=== PATIENT | female | born 1985 | race Hispanic/Latino ===

== ENCOUNTER 2019-08-03 14:09 | Day surgery (SDC) | payer SELFPAY ==
[2019-08-03 14:52] VITALS: BMI 38.4
[2019-08-03] MEDS ORDERED: Iron Sucrose Complex 500 MG in Sodium Chloride 0.9% 250 ML 250 ML IVPB SCH (14:59)
[2019-08-03] MEDS ORDERED: Acetaminophen 500 MG TAB PO SCH ×2 (15:00→15:15)
[2019-08-03] MEDS ORDERED: hydrALAZINE 20 MG/ML VIAL SLOW IVP PRN (15:01)
--- NOTE | 2019-08-03 15:01 | PDOC.FPROB ---
FMR OB H&P: HPI - History of Present Illness Chief Complaint: Iron Infusion History of Present Illness: Pt is a 34 yo F with history of possible pre-term at 36 wks at 12.0 wks with LM 02/15/2020 who was seen in clinic earlier this week and found to have a Hgb of 7.1 with MCV 58.8, so she was scheduled to have iron studies preformed. Review Systems is positive for weakness, SOB, tachycardia, fatigue, abdominal pain, and headaches. 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 FMR OB H&P: Medications - Current Home Medications: Medication Instructions Recorded Confirmed Type Vit,Calc76/Iron/Folic 1 tablet PO DAILY 12/01/13 12/01/13 History [Prenatabs Rx Tablet] Ascorbic Acid [Vitamin C] 500 mg PO BID 30 Days #60 capsule 08/03/19 Rx Docusate [Colace] 100 mg PO BID 30 Days #60 cap 08/03/19 Rx Ferrous Sulfate 325 mg PO BID 30 Days #60 tablet 08/03/19 Rx Allergies/Adverse Reactions: Allergies Allergy/AdvReac Type Severity Reaction Status Date / Time No Known Allergies Allergy Verified 08/03/19 14:52 FMR OB H&P: ROS - Review of Systems General: reports: fatigue. denies: fever/chills Eyes: denies: vision changes ENT: denies: nasal congestion, rhinorrhea Cardiovascular: denies: chest pain, edema Respiratory: reports: shortness of breath. denies: cough, congestion Gastrointestinal: reports: abdominal pain. denies: vomiting, diarrhea, constipation Genitourinary (Female): denies: dysuria Musculoskeletal: denies: pain, tenderness Neurologic: reports: weakness, headache. denies: numbness, syncope Integumentary: denies: itching, rash Hematologic/Lymphatic: denies: prolonged or excessive bleeding, enlarged lymph nodes FMR OB H&P: Vital Signs - Maternal Vital signs: HR: 73, BP: 123/68, T: 98.2 FMR OB H&P: Physical Exam - Physical Exam General: NAD, awake, alert and oriented HEENT: normocephalic and atraumatic, conjunctiva clear, normal nasal mucosa, oropharynx clear, good dention Neck: supple, FROM Heart: RRR, normal S1/S2, no murmurs/rubs/gallops, pulses present General: CTAB, no respiratory distress Abdomen: soft, gravid, non-tender, bowel sound present, no masses Musculoskeletal: pulses present, FROM in all four extremities Neurological: cranial nerves II through XII intact Skin: no rash, good tugor Lymphatic: no unusual bruising or bleeding Psychiatric: normal mood and affect FMR OB H&P: A/P - Problem List (1) Intrauterine Current Visit: Yes Status: Acute Code(s): Z34.90 - ENCNTR FOR SUPRVSN OF NORMAL , UNSP, UNSP TRIMESTER (2) Anemia Current Visit: Yes Status: Acute Code(s): D64.9 - ANEMIA, UNSPECIFIED Disposition: Pt is a 34 yo F with history of possible pre-term at 36 wks at 12.0 wks with LM 02/15/2020 who was seen in clinic earlier this week and found to have a Hgb of 7.1 with MCV 58.8, so she was scheduled to have iron studies preformed. 1. sIUP Currently 12.0 wks * US found HR to be 169 * Given 1 g of Tylenol for headache 2. Anemia of Hgb: 7.1 with MCV 58.8 * Ordered iron studies * Starting iron transfusion * Will send with integra and vitamin C as well as ducolax and colace once transfusion finishes * Consider hemoglobin electrophoresis outpatient Dispo: Iron transfusion and then d/c. F/u with [facility]NC. Discussion: Date/Time: 08/03/19 9997 This H&P was discussed with Dr. [] and [] who agree with the above documentation and plan. Addendum - Attending - Attending Attestation Date/Time: 08/03/19 5793 I personally evaluated the patient and discussed the management with Dr. Trinidad I agree with the History, Examination, Assessment and Plan documented above with any addition or exceptions noted below. iron infusion started. Iron studies ordered. MCV 56. Will consider hemoglobin eval outpatient.
[2019-08-03 15:28] LABS: Iron 17 ug/dL (50-170); Iron Binding Capacity, Total 490 mcg/dL (265-497)
--- NOTE | 2019-08-03 20:37 | PDOC.BPN ---
- Brief Progress Note At 2030 on 08/03 the Resident Night Team was notified that the patient finished her iron infusion without incident. Appropriate prescriptions were placed at her preferred pharmacy, and the patient voiced understanding of her updated medication regimen.
--- NOTE | 2019-08-06 14:59 | SS ---
DATE OF ADMISSION: 08/03/2019 DATE OF DISCHARGE: 08/03/2019 CHIEF COMPLAINT: Iron infusion. HISTORY OF PRESENT ILLNESS: The patient is a 34-year-old female. She is a G6, P4-1-0-5 with a history of possible at 36 weeks, who presents at 12 weeks with estimated due date of 02/15/2020, who was seen in clinic earlier this week and found to have a hemoglobin 7.1 with an MCV of 58.8. She was also scheduled to have iron studies performed. REVIEW OF SYSTEMS: Positive for weakness, shortness of breath, tachycardia, fatigue, abdominal pain, and headaches. PAST MEDICAL HISTORY: Significant for anemia of . PAST SURGICAL HISTORY: Unremarkable. FAMILY HISTORY: Positive for diabetes in her father. SOCIAL HISTORY: The patient denies alcohol, tobacco, or drug abuse at this time. ADMISSION MEDICATIONS: 1. vitamin. 2. Vitamin C. 3. Colace. 4. Ferrous sulfate. REVIEW OF SYSTEMS: The patient reports fatigue. Denies fevers and chills. Also denies vision changes, nasal congestion, rhinorrhea, chest pain, or edema. Reports of shortness of breath, but denies cough or congestion. Reports abdominal pain. Denies vomiting, diarrhea, or constipation. Denies dysuria. Denies muscular pain and/or tenderness. Reports weakness and headaches, but denies numbness or syncopal episodes. Denies itching or rash. Denies prolonged or excessive bleeding or enlarged lymph nodes. PHYSICAL EXAMINATION: GENERAL: The patient was in no acute distress and was awake, alert, and oriented. HEENT: Revealed normocephalic and atraumatic head with clear conjunctiva. Normal nasal mucosa. Clear oropharynx and good dentition. NECK: Supple with full range of motion. HEART: Demonstrated regular rate and rhythm with normal S1, S2 and no murmurs, gallops, or rubs. Pulses were present. LUNGS: Clear lungs to auscultation bilaterally, were noted without signs of respiratory distress. ABDOMEN: Soft, gravid, nontender with bowel sounds present and no masses. MUSCULOSKELETAL: Revealed pulses present with full range of motion x4. NEUROLOGIC: Revealed cranial nerves 2 through 12 intact. SKIN: Unremarkable. LYMPHATIC: Unremarkable. PSYCHIATRIC: Demonstrated normal mood and affect. HOSPITAL COURSE: The patient received an iron transfusion in the Labor and Delivery department, was noted by nursing staff to tolerate the procedure well. DISCHARGE DIAGNOSES: 1. Anemia of . 2. Single intrauterine . DISCHARGE MEDICATIONS: 1. Ascorbic acid 500 mg p.o. b.i.d. 2. Docusate 100 mg p.o. b.i.d. 3. Ferrous sulfate 325 mg p.o. b.i.d. DISPOSITION: Stable. DISCHARGE INSTRUCTIONS: Location: Home. Diet: Heart healthy. Activity: No restrictions. Followup: The patient was encouraged to follow up with clinic for ongoing maintenance of her . Job ID: [id number]
== END 2019-08-03 20:35 | disposition home or self-care (01) ==
LOC: L&D/OP 14:09
PROVIDERS: ATTEND Family Medicine
DX: O99.011 Anemia complicating pregnancy, first trimester (principal); D64.9 Anemia, unspecified; Z3A.12 12 weeks gestation of pregnancy; Z79.899 Other long term (current) drug therapy
CPT/HCPCS: 82728; 83540; 83550; 96360; 96365; 96366; 99282; J1756; J7050

== ENCOUNTER 2019-12-27 15:20 | Day surgery (SDC) | payer SELFPAY ==
[2019-12-27 15:49] VITALS: BP 154/82; TEMP 98.2; BMI 37.8
--- NOTE | 2019-12-27 16:39 | PDOC.FPROB ---
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 Denies landing on her belly. Reports no vaginal discharge or bleeding. Notes her pain does not feel like contractions. FMR OB H&P: Current - Care : Due date: 02/15/2020 Dating Criteria: 11 week FMR OB H&P: History - Past Medical History PMH: Anemia of , A1GDM - OB History OB History: , all vaginal deliveries, no complications - Surgical History Sx History: No Surgical Hx - Social History Social History: No tobacco, drugs, alcohol - Family History Family History: non- contributory FMR OB H&P: Medications - Current Home Medications: Medication Instructions Recorded Confirmed Type Vit,Calc76/Iron/Folic 1 tablet PO DAILY 12/01/13 12/27/19 History [Prenatabs Rx Tablet] Allergies/Adverse Reactions: Allergies Allergy/AdvReac Type Severity Reaction Status Date / Time No Known Allergies Allergy Verified 08/03/19 14:52 FMR OB H&P: ROS - Review of Systems General: denies: fever/chills, weight/appetite/sleep changes Eyes: denies: eye pain, vision changes ENT: denies: nasal congestion, rhinorrhea Cardiovascular: denies: chest pain, palpitation Respiratory: denies: cough, congestion Gastrointestinal: reports: abdominal pain (Upper and lower abdominal pain), cramping. denies: nausea, vomiting Genitourinary (Female): denies: vaginal discharge, vaginal bleeding, contractions Musculoskeletal: reports: pain (knee pain) Neurologic: reports: other (+dizziness). denies: numbness, syncope Integumentary: denies: itching, rash Breast: denies: lumps, bumps Endocrine: denies: cold intolerance, heat intolerance Hematologic/Lymphatic: denies: prolonged or excessive bleeding, enlarged lymph nodes Psychological: denies: depression, anxiety FMR OB H&P: Vital Signs - Maternal Vital signs: Vital Signs - First Documented Temp Pulse Resp BP Pulse Ox 98.2 F 74 18 154/82 H 98 12/27/19 15:42 12/27/19 15:42 12/27/19 15:42 12/27/19 15:42 12/27/19 15:42 - Heart Tones Baseline: 135 (130s-140s) Variability: moderate Acceleration: present Deceleration: absent Category: category 1 [place] contractions every: no contractions FMR OB H&P: Physical Exam - Physical Exam General: NAD, awake, alert and oriented HEENT: normocephalic and atraumatic, PERRLA Neck: supple, FROM Chest: non-tender to palpation, no lesions Breast: symmetric, non-tender Heart: RRR, normal S1/S2 General: CTAB, no respiratory distress Abdomen: soft, gravid, other (mild TTP in RUQ, no bruising on the abdomen) Musculoskeletal: normal gait and station, pulses present Neurological: no tremor, no focal deficit Skin: no rash, good tugor Lymphatic: no unusual bruising or bleeding, no purpura Psychiatric: intact recent and remote memory, good judgement and insight, normal mood and affect - Pelvic Exam Vulva: normal hair distribution FMR OB H&P: A/P Disposition: 34 year old female, Hx of Anemia of and A1GDM during this , at 32.6 weeks 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 Notes she had upper and lower abdominal pain 20 minutes s/p fall. Denies landing on her abdomen. Reports no vaginal discharge or bleeding. Notes her pain does not feel like contractions. Fall in - - No bruising/ecchymosis on the abdomen. mild TTP RUQ, describes pain as cramping, notes it is different from labor pain. - Denies vaginal bleeding/discharge - Tylenol 1gm given for pain - will continue to monitor strip and vitals for 2 hours Discussion: Date/Time: 12/27/19 1636 This H&P was discussed with [] and [] who agree with the above documentation and plan. Addendum - Attending - Attending Attestation Date/Time: 12/27/19 874 I personally evaluated the patient and discussed the management with Dr. Farooq. I agree with the History, Examination, Assessment and Plan documented above. S/ p fall with no abdominal trauma. Now asymptomatic but had elevated BPs. Workup pending.
[2019-12-27] MEDS ORDERED: hydrALAZINE 20 MG/ML VIAL SLOW IVP PRN (16:45)
[2019-12-27] MEDS ORDERED: Acetaminophen 500 MG TAB PO SCH (17:15)
[2019-12-27 18:26] LABS: #Eosinphils 0.1 thou/uL (0.0-0.7); #Lymphocytes 1.5 thou/uL (1.20-3.40); #Monocytes 0.6 thou/uL (0.11-0.59); #Neutrophils 4.6 thou/uL (1.40-6.50); %Basophils 0.6 % (0.0-1.0); %Eosinophils 1.3 % (0.0-10.0); %Lymphocytes 21.9 % (21.0-51.0); %Monocytes 8.2 % (0.0-10.0); Hemoglobin 10.6 g/dL (12.0-16.0); Mean Corpuscular HGB CONC 33.9 g/dL (32.0-36.0); Mean Corpuscular Hemoglobin 25.5 pg (27.0-31.0); Mean Corpuscular Volume 75.1 fL (78.0-98.0); Platelet Count 300 thou/uL (130-400); RBC Distribution Width 14.1 % (11.5-14.5); Red Blood Cell (RBC) Count 4.17 mill/uL (4.20-5.40); White Blood Cell (WBC) Count 6.8 thou/uL (4.8-10.8)
[2019-12-27 18:46] LABS: ALT (SGPT) 8 U/L (8-55); AST (SGOT) 12 U/L (5-34); Albumin 3.4 g/dL (3.5-5.0); Alkaline Phosphatase 104 U/L (40-110); Anion Gap 11 mmol/L (10-20); BUN (Urea Nitrogen) 7 mg/dL (7.0-18.7); Bilirubin, Total 0.4 mg/dL (0.2-1.2); Calc. Creatinine Clearance 209 mL/min (70-130); Calcium 8.9 mg/dL (7.8-10.44); Carbon Dioxide 23 mmol/L (22-29); Chloride 106 mmol/L (98-107); Estimated GFR-MDRD Greater than 90; Globulin 3.9 g/dL (2.4-3.5); Glucose 83 mg/dL (70-105); Potassium 3.9 mmol/L (3.5-5.1); Protein, Total 7.3 g/dL (6.0-8.3); Sodium 136 mmol/L (136-145)
[2019-12-27 18:49] LABS: Creatinine, Urine 44.86 mg/dL (47-110); Protein, Urine Random Quant Less than 10 mg/dL (1-14)
--- NOTE | 2019-12-27 19:23 | PDOC.LDPN ---
Labor & Delivery Progress Note - Subjective Subjective: comfortable - Objective Vital signs reviewed and normal: yes General: NAD FHT: category 1, variability present [place] contractions every: none noted - Assessment (1) Elevated blood pressure affecting in third trimester, antepartum Code(s): O16.3 - UNSPECIFIED MATERNAL HYPERTENSION, THIRD TRIMESTER Status: Acute (2) Anemia Code(s): D64.9 - ANEMIA, UNSPECIFIED Status: Acute Qualifiers: Anemia type: iron deficiency (3) Intrauterine Code(s): Z34.90 - ENCNTR FOR SUPRVSN OF NORMAL , UNSP, UNSP TRIMESTER Status: Acute Plan: other -: 34 year old female, Hx of Anemia of and A1GDM during this , at 32.6 weeks who 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 Fall in - - No bruising/ecchymosis on the abdomen. mild TTP RUQ, describes pain as cramping, notes it is different from labor pain. - Denies vaginal bleeding/discharge - Tylenol 1gm given for pain - will continue to monitor strip and vitals for 2 hours Elevated BP in , suspect new onset PIH - Patient SBPs have ranged from 130-154 since arrival. All DBPs WNLs. All other VS WNLs. - Pre-e labs unremarkable w/ Plts of 300, AST/ALT/alk phos 12//104, Cr 0.61 & urine protein <10. Anemia in : - Hgb 10.6 today s/p iron infusion this @ <20WGA. May benefit from second transfusion if she is still compliant w/ PO iron. Dispo: Will d/c home with instructions to check BP at home QD & bring log to NOV @ [facility]. Pre-e precautions reviewed. Needs to call on Monday & inform them of her triage stay & needs to be seen in clinic within 2 weeks for continued monitoring of her BPs. Addendum - Attending - Attending Attestation Date/Time: 12/29/19 0789 I personally evaluated the patient and discussed the management with Dr. Horton. I agree with the History, Examination, Assessment and Plan documented above.
== END 2019-12-27 19:40 | disposition home or self-care (01) ==
LOC: L&D/OP 15:20
PROVIDERS: ATTEND Obstetrics & Gynecology
DX: O99.89 Other specified diseases and conditions complicating pregnancy, childbirth and the puerperium (principal); R10.10 Upper abdominal pain, unspecified; R10.30 Lower abdominal pain, unspecified; R03.0 Elevated blood-pressure reading, without diagnosis of hypertension; O99.013 Anemia complicating pregnancy, third trimester; D50.9 Iron deficiency anemia, unspecified; O24.410 Gestational diabetes mellitus in pregnancy, diet controlled; Z3A.32 32 weeks gestation of pregnancy; W18.30XA Fall on same level, unspecified, initial encounter
CPT/HCPCS: 36415; 80053; 82570; 84156; 85025

== ENCOUNTER 2020-02-06 11:09 | Day surgery (SDC) | payer OTHER ==
[2020-02-06 12:38] VITALS: BMI 41.5
--- NOTE | 2020-02-06 13:41 | PDOC.BPN ---
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 She states was checked last week and was 1cm. No LOF, no VB, good FM. here for CTX on/off and are 4 out of 10 max pain at times. No trauma, no recent sex.She states she self checks her sugars at home and they are wnl, one BP at 140/90 at home but was with CTX per her report. No visual changes, no SOLER, no RUQ pains. Review of System: complete ROS performed and negative as per HPI Past Medical: neg Past OB HX: HX PPH in past but not the last . 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 Pain less now...few CTX now. A2DM on metformin 1. recheck CX in 2 hrs 2. Check CMP and CBC to be conservative although BPs normal here 3. NST reactive If no change, ok for outpatient follow up Please see additional H&P from Resident
--- NOTE | 2020-02-06 13:53 | PDOC.LDHP ---
Labor and Delivery H&P Chief complaint: contractions HPI: Patient presents for contractions that began last night around 10PM and have increased in frequency overnight. She states they were 5 minutes apart when she arrived. She reports vaginal spotting that began around 3AM and has required 3 liners during this time. She reports pain 4/10 that she describes pressure. She denies gross vaginal bleeding and LOF. Endorses FM. Patient reports adequate oral intake and hydration. Current gestational age (weeks): 37 Due date: 02/24/20 Dating criteria: first trimester ultrasound (10.3 wk u/s) Current complications: gestational diabetes, gestational hypertension Current medications: pre-jefe vitamins Previous surgical history: none Allergies/Adverse Reactions: Allergies Allergy/AdvReac Type Severity Reaction Status Date / Time No Known Allergies Allergy Verified 02/06/20 12:33 Social history: none - Physical Exam General: NAD, resting Heart: RRR Lungs: CTAB Abdomen: gravid Extremeties: no edema FHT: category 1 [place] contractions every: 3-5 - Vaginal Exam cm dilated: 3 Effacement: 50% Station: -2 - OB Labs Blood type: O RH: positive Antibody Screen: negative HIV: negative RPR: negative HEPSAg: negative 3 hour GTT: 70/183/155 GBS: positive Urine drug screen: not done Rubella: immune - Assessment early term pt who presents with contractions - Plan Plan: observation in L&D -: sIUP -pt presents to L&D with complaints of contractions and spotting -cervical exam on arrival was 3/40/-2 -due to grand multiparious state, decided to monitor pt for 4 hours with 2 hour cervical checks both of which were unchanged from original -labs were drawn prior to d/c (CBC, CMP, Type and Screen), but have not yet resulted -pt given instruction to return to hospital if spotting turns into significant bleeding, if she experiences an increase in contraction frequency and intensity , if she experiences LOF, or if she notices decreased movement -pt was advised to keep all scheduled appointments until delivery -next appointment is tomorrow gHTN -continue to monitor at home -CMP, CBC pending A2GDM -on metformin -continue to monitor at home Dispo: will discharge home with proper precautions
--- NOTE | 2020-02-06 14:07 | PDOC.BPN ---
- Brief Progress Note Follow up check still unchanges but due to CTX presence at every 3-5, we will watch for another 2 hrs
[2020-02-06 16:18] LABS: #Eosinphils 0.1 thou/uL (0.0-0.7); #Lymphocytes 1.6 thou/uL (1.20-3.40); #Monocytes 0.4 thou/uL (0.11-0.59); #Neutrophils 6.3 thou/uL (1.40-6.50); %Basophils 0.3 % (0.0-1.0); %Eosinophils 0.9 % (0.0-10.0); %Lymphocytes 19.1 % (21.0-51.0); %Monocytes 4.9 % (0.0-10.0); %Neutrophils 74.8 % (42.0-75.0); Hemoglobin 10.1 g/dL (12.0-16.0); Mean Corpuscular HGB CONC 33.1 g/dL (32.0-36.0); Mean Corpuscular Hemoglobin 23.9 pg (27.0-31.0); Mean Corpuscular Volume 72.2 fL (78.0-98.0); Mean Platelet Volume 9.9 fL (7.4-10.4); Platelet Count 262 thou/uL (130-400); RBC Distribution Width 14.9 % (11.5-14.5); Red Blood Cell (RBC) Count 4.24 mill/uL (4.20-5.40); White Blood Cell (WBC) Count 8.4 thou/uL (4.8-10.8)
[2020-02-06 16:38] LABS: ALT (SGPT) Less than 7 U/L (8-55); AST (SGOT) 11 U/L (5-34); Alkaline Phosphatase 144 U/L (40-110); Anion Gap 11 mmol/L (10-20); BUN (Urea Nitrogen) 10 mg/dL (7.0-18.7); Bilirubin, Total 0.4 mg/dL (0.2-1.2); Calc. Creatinine Clearance 210 mL/min (70-130); Calcium 8.3 mg/dL (7.8-10.44); Carbon Dioxide 23 mmol/L (22-29); Chloride 106 mmol/L (98-107); Estimated GFR-MDRD Greater than 90; Globulin 3.8 g/dL (2.4-3.5); Glucose 123 mg/dL (70-105); Potassium 3.9 mmol/L (3.5-5.1); Protein, Total 6.8 g/dL (6.0-8.3); Sodium 136 mmol/L (136-145)
[2020-02-06 16:58] LABS: Hypochromia SLIGHT = 6-15 cells (100X) (0-5/hpf); MDiff Complete? YES; Microcytosis SLIGHT = 6-15 cells (100X) (0-5/hpf); Platelet Morphology Comment Appears Adequate; Polychromasia SLIGHT = 2-3 cells (100X) (0-2/hpf)
== END 2020-02-06 16:30 | disposition home health service (06) ==
LOC: ERS 11:09 → L&D/OP 16:30
PROVIDERS: ATTEND Obstetrics & Gynecology
DX: O47.1 False labor at or after 37 completed weeks of gestation (principal); O26.853 Spotting complicating pregnancy, third trimester; O13.3 Gestational [pregnancy-induced] hypertension without significant proteinuria, third trimester; O24.415 Gestational diabetes mellitus in pregnancy, controlled by oral hypoglycemic drugs; Z3A.37 37 weeks gestation of pregnancy
CPT/HCPCS: 36415; 76815; 80053; 85025; 86850; 86900; 86901; 99283

== ENCOUNTER 2023-05-31 08:14 | Emergency (ER) | payer SELFPAY ==
[2023-05-31 08:41] LABS: Bilirubin Negative (Negative); Blood, Urine Trace (Negative); Glucose, Urine (Dipstick) Negative (Negative); Ketone, Urine Negative (Negative); Leukocyte Moderate (Negative); Nitrite Negative (Negative); Protein, Urine (Dipstick) Negative (Neg-Trace); Specific Gravity, Urine 1.025 (1.005-1.030)
[2023-05-31 08:43] LABS: Clarity Hazy (Clear)
[2023-05-31 08:47] LABS: Bacteria/HPF 2+ HPF (None Seen); CAUTI Indications for Culture Dysuria,urgency,freq; RBC/HPF 0-3 HPF (0-3); Squamous Epithelial 21-50 HPF (0-3)
[2023-05-31 08:49] LABS: Urine Culture Reflex Yes Yes
[2023-05-31] MEDS ORDERED: Famotidine 20 MG TAB ONE (09:50)
[2023-05-31] MEDS ORDERED: Mag-Al 1200 mg/1200 mg/30 ML UDCUP ONE (09:50)
[2023-05-31 10:21] LABS: #Eosinphils 0.1 thou/uL (0.0-0.7); #Monocytes 0.5 thou/uL (0.11-0.59); #Neutrophils 3.6 thou/uL (1.40-6.50); %Basophils 0.3 % (0.0-1.0); %Eosinophils 1.9 % (0.0-10.0); %Lymphocytes 32.4 % (21.0-51.0); %Monocytes 8.5 % (0.0-10.0); %Neutrophils 56.6 % (42.0-75.0); Hematocrit 27.8 % (36.0-47.0); Hemoglobin 8.1 g/dL (12.0-16.0); Mean Corpuscular HGB CONC 29.1 g/dL (32.0-36.0); Mean Corpuscular Hemoglobin 19.8 pg (27.0-31.0); Mean Corpuscular Volume 67.8 fl (78.0-98.0); Platelet Count 353 10x3/uL (130-400); RBC Distribution Width 18.2 % (11.5-14.5); White Blood Cell (WBC) Count 6.4 10x3/uL (4.8-10.8)
[2023-05-31 10:52] LABS: ALT (SGPT) 17 U/L (8-55); AST (SGOT) 18 U/L (5-34); Albumin 3.6 g/dL (3.5-5.0); Alkaline Phosphatase 64 U/L (40-110); Anion Gap 12 mmol/L (10-20); BUN (Urea Nitrogen) 8 mg/dL (7.0-18.7); Bilirubin, Total 0.4 mg/dL (0.2-1.2); Calc. Creatinine Clearance 0 mL/min (70-130); Calcium 9.5 mg/dL (7.8-10.44); Carbon Dioxide 23 mmol/L (22-29); Chloride 106 mmol/L (98-107); Estimated GFR 117; Glucose 109 mg/dL (70-105); Lipase 13 U/L (8-78); Potassium 3.6 mmol/L (3.5-5.1); Protein, Total 7.6 g/dL (6.0-8.3); Sodium 137 mmol/L (136-145)
[2023-05-31 11:15] LABS: CellaVision Operator ID LAB.GE; Hypochromia SLIGHT = 6-15 cells HPF (0-5); Large Platelets 5.8 % (0-5); Microcytosis MODERATE=15-30 cells HPF (0-5); Platelet Adequacy Comment Platelets Normal; Polychromasia SLIGHT = 2-3 cells HPF (0-2)
== END 2023-05-31 11:24 | disposition home or self-care (01) ==
LOC: ERS 08:14
DX: O23.41 Unspecified infection of urinary tract in pregnancy, first trimester (principal); N39.0 Urinary tract infection, site not specified; O99.011 Anemia complicating pregnancy, first trimester; D64.9 Anemia, unspecified; Z3A.13 13 weeks gestation of pregnancy
CPT/HCPCS: 36415; 76705; 80053; 81001; 83690; 84702; 85025; 87077; 87086

== ENCOUNTER 2024-06-06 15:29 | Emergency (ER) | payer MEDICAID, OTHER ==
[2024-06-06 16:06] LABS: Bacteria/HPF None Seen HPF (None Seen); Bilirubin Negative (Negative); Blood, Urine Negative (Negative); CAUTI Indications for Culture Dysuria,urgency,freq; Clarity Clear (Clear); Glucose, Urine (Dipstick) Normal (Negative); Ketone, Urine Negative (Negative); Leukocyte Negative Leu/uL (Negative); Nitrite Negative (Negative); Protein, Urine (Dipstick) 20 mg/dL (Neg-Trace); RBC/HPF 0-3 HPF (0-3); Specific Gravity, Urine 1.023 (1.002-1.036); Squamous Epithelial 0-3 HPF (0-3); Urobilinogen Normal mg/dL (Less than 2); WBC/HPF 0-3 HPF (0-3)
[2024-06-06 16:09] LABS: Pregnancy Test - Urine (BHCG) Negative (Negative); Pregu Control Background? CLEAR/WHITE (CLR/WHITE); Pregu Control Bar Appear? YES (CONTROL BAR); Specific Gravity 1.023 (1.002-1.036); Urine Culture Reflex No No
[2024-06-06] MEDS ORDERED: Ketorolac Tromethamine 30 MG (1 mL) VIAL ONE (16:40)
[2024-06-06 16:55] LABS: #Basophils 0.03 10x3/uL (0.0-0.2); %Basophils 0.5 % (0.0-1.0); %Lymphocytes 35.6 % (21.0-51.0); %Monocytes 9.6 % (0.0-10.0); %Neutrophils 51.1 % (42.0-75.0); Hematocrit 30.6 % (36.0-47.0); Hemoglobin 9.3 g/dL (12.0-16.0); Mean Corpuscular HGB CONC 30.4 g/dL (32.0-36.0); Mean Corpuscular Hemoglobin 21.3 pg (27.0-31.0); Mean Corpuscular Volume 70.2 fL (78.0-98.0); Mean Platelet Volume 9.8 fL (7.4-10.4); Platelet Count 382 10x3/uL (130-400); RBC Distribution Width 15.3 % (11.5-14.5); Red Blood Cell (RBC) Count 4.36 mill/uL (4.20-5.40)
[2024-06-06 17:08] LABS: ALT (SGPT) 39 U/L (8-55); AST (SGOT) 31 U/L (5-34); Albumin 3.8 g/dL (3.5-5.0); Alkaline Phosphatase 82 U/L (40-110); Anion Gap 13 mmol/L (10-20); BUN (Urea Nitrogen) 6 mg/dL (7.0-18.7); Bilirubin, Total 0.4 mg/dL (0.2-1.2); Calc. Creatinine Clearance 0 mL/min (70-130); Carbon Dioxide 23 mmol/L (22-29); Chloride 106 mmol/L (98-107); Estimated GFR 117; Globulin 4.2 g/dL (2.4-3.5); Glucose 107 mg/dL (70-105); Potassium 3.6 mmol/L (3.5-5.1); Sodium 138 mmol/L (136-145)
[2024-06-06 17:34] LABS: Anisocytosis SLIGHT = 6-15 cells HPF (0-5); Hypochromia SLIGHT = 6-15 cells HPF (0-5); Microcytosis SLIGHT = 6-15 cells HPF (0-5); Ovalocytes SLIGHT = 2-5 cells HPF (0-1); Platelet Adequacy Comment Platelets Normal; Polychromasia SLIGHT = 2-3 cells HPF (0-2)
== END 2024-06-06 17:58 | disposition home or self-care (01) ==
LOC: ERS 15:29
DX: N76.0 Acute vaginitis (principal); B96.89 Other specified bacterial agents as the cause of diseases classified elsewhere; Z55.0 Illiteracy and low-level literacy
CPT/HCPCS: 76856; 80053; 81001; 81025; 85025; 87480; 87510; 87660; 96374; J1885